=== PATIENT | female | born 1970 | race Caucasian/White ===

== ENCOUNTER → 2016-05-03 | Outpatient (REF) | payer OTHER ==
[~2016-05-03] MED LIST: /DULO30CA OR; /ESOM40CA OR; CALC600T10 OR; EXCETAB OR; METF750T OR; MULTIVIT PO; PRAV20TA2 OR; VITA500T OR; diltiazem PO; magnesium/zinc PO; medroxyprogesterone IM; vesicare PO
[2016-05-03 13:56] LABS: BASO % 0.4 % (0.0-1.0); EOS # 0.6 K/mm3 (0.0-0.50); EOS % 5.2 % (0.0-3.0); LARGE UNSTAINED CELL # 0.1 K/mm3 (0.0-0.4); LARGE UNSTAINED CELL % 0.9 % (0.0-4.0); LYMPH # 1.9 K/mm3 (1.5-4.5); LYMPH % 15.9 % (24.0-44.0); MEAN CORPUSCULAR HEMOGLOBIN 29.3 pg (27.0-33.0); MEAN CORPUSCULAR HGB CONC 32.8 g/dl (32.0-36.5); MEAN CORPUSCULAR VOLUME 89.2 fl (80.0-96.0); MONO # 0.5 K/mm3 (0.0-0.8); MONO % 4.5 % (0.0-5.0); NEUTROPHILS # 8.8 K/mm3 (1.8-7.7); NEUTROPHILS % 73.1 % (36.0-66.0); PLATELET COUNT, AUTOMATED 388 k/mm3 (150-450); RED CELL DISTRIBUTION WIDTH 12.6 % (11.5-14.5); WHITE BLOOD COUNT 12.1 K/mm3 (4.0-10.0)
[2016-05-03 14:29] LABS: ERYTHROCYTE SEDIMENTATION RATE 13 mm/hr (0-20)
[2016-05-05 14:13] LABS: Lyme Disease IgG/IgM Antibodie <0.91 ISR (0.00-0.90); Lyme Disease IgM Ab Quantitati <0.80 index (0.00-0.79)
== END ==
LOC: M LABDRAW1 13:09
PROVIDERS: ATTEND Orthopaedic Surgery
DX: G56.02 Carpal tunnel syndrome, left upper limb (principal)

== ENCOUNTER → 2016-09-12 | Outpatient (CLI) | payer OTHER ==
[2016-09-12 19:39] LABS: ANION GAP 11 MEQ/L (8-16); BLOOD UREA NITROGEN 16 MG/DL (7-18); CALCIUM LEVEL 9.1 MG/DL (8.5-10.1); CARBON DIOXIDE LEVEL 23 MEQ/L (21-32); CHLORIDE LEVEL 105 MEQ/L (98-107); CREATININE FOR GFR 0.98 MG/DL (0.55-1.02); GLOMERULAR FILTRATION RATE > 60.0 (>58); GLUCOSE, FASTING 158 MG/DL (70-105); SODIUM LEVEL 139 MEQ/L (136-145)
== END ==
LOC: M WUC 16:09
PROVIDERS: ATTEND Orthopaedic Surgery
DX: Z51.81 Encounter for therapeutic drug level monitoring (principal); Z79.899 Other long term (current) drug therapy

== ENCOUNTER → 2017-02-06 | Outpatient (CLI) | payer OTHER ==
--- NOTE | 2017-02-08 13:08 | REPMRS ---
Patient History The patient states she had a clinical breast exam in 2016. Patient is nulliparous. Family history of unknown cancer in maternal aunt at age 35 and unknown cancer in maternal uncle at age 60. Took hormonal contraceptives for 2 years. Taking unspecified hormones for 10 years. Digital Mammo Screening Bilat: February 06, 2017 - Exam #: [id number] Bilateral CC and MLO view(s) were taken. Technologist: Leora Lim, Technologist Prior study comparison: February 05, 2016, bilateral digital mammo screening bilat performed at [facility]. January 30, 2015, digital bilateral screening mammo, performed at [facility]. FINDINGS: There are scattered fibroglandular densities. There has been no change in the appearance of the mammogram from the prior studies. There is a mild amount of residual fibroglandular tissue which is fairly symmetric. There is no interval development of dominant mass, architectural distortion, or clustered microcalcification suggestive of malignancy. ASSESSMENT: BI-RADS/ACR category 1 mammogram. Negative. Recommendation Routine screening mammogram in 1 year (for women over age 40). This mammogram was interpreted with the aid of an FDA-approved computer-aided dectection system. Electronically Signed By: James Shaikh MD 02/08/17 [id number]
== END ==
LOC: M RAD 15:14
PROVIDERS: ATTEND Obstetrics & Gynecology
DX: Z12.31 Encounter for screening mammogram for malignant neoplasm of breast (principal); Z92.0 Personal history of contraception

== ENCOUNTER → 2018-06-23 | Outpatient (REF) | payer OTHER ==
[~2018-06-23] MED LIST changes: -/DULO30CA OR; -/ESOM40CA OR; +CYMB1CAP5 OR; +NEXI1CAP3 OR
== END ==
LOC: M LAB REF 10:21
PROVIDERS: ATTEND Physician Assistant
DX: R30.0 Dysuria (principal)

== ENCOUNTER → 2019-01-18 | Outpatient (REF) | payer OTHER | LOC: M LAB REF 12:33 | PROVIDERS: ATTEND Nurse Practitioner Family | DX: R30.0 Dysuria (principal) ==

== ENCOUNTER → 2019-06-10 | Outpatient (CLI) | payer OTHER | LOC: M LABSMTC 11:57 | PROVIDERS: ATTEND Family Medicine | DX: Z11.59 Encounter for screening for other viral diseases (principal); Z20.828 Contact with and (suspected) exposure to other viral communicable diseases ==

== ENCOUNTER 2019-09-02 06:40 | Day surgery (SDC) | payer OTHER ==
[~2019-09-02] VITALS: Ht 170.2 cm; Wt 124.7 kg
[~2019-09-02 06:40] MED LIST changes: +ALAW0.02 OU; +ATOR40TA75 PO; +BRIM0.2S13 OD; +CALC600T60 PO; +CART240C3 PO; +CHEL100T4 PO; +DULO1CAP6 PO; +ESOM40CA35 PO; +ESTR3TA PO; +EXCETAB22 PO; +LATA0.0015 OU; +MECL-58 PO; +MEDR150I12 IM; +METF750T36 PO; +MULTCAP PO; +RAMI1CAP22 PO; +VESI10TA2 PO; +[UNRECOGNIZED DRUG - CODE] PO
[2019-09-02] MEDS ORDERED: NS 1,000 ML IV ONE (07:00)
[2019-09-02] MEDS ORDERED: propofoL 200 MG/20 ML VIAL As Ordered ONE ×2 (07:14→07:35)
--- NOTE | 2019-09-02 08:00 | ROOR ---
Patient Name: Tiara Rios Procedure Date: 09/02/2019 7:34 AM Date of : 1970 Age: 49 [facility] Gender: Female Note Status: Finalized Procedure: Total Colonoscopy to Cecum + Biopsy Polypectomy Indications: Screening for colorectal malignant neoplasm Providers: Amadeo Whitmore MD Referring MD: VERONICA RAVI JR, MD Requesting Provider: Medicines: Monitored Anesthesia Care Complications: No immediate complications. Procedure: Pre-Anesthesia Assessment: - The heart rate, respiratory rate, oxygen saturations, blood pressure, adequacy of pulmonary ventilation, and response to care were monitored throughout the procedure. The Colonoscope was introduced through the anus and advanced to the cecum, identified by appendiceal orifice and ileocecal valve. The colonoscopy was performed without difficulty. The patient tolerated the procedure well. The quality of the bowel preparation was excellent. Findings: The perianal and digital rectal examinations were normal. Non-bleeding internal hemorrhoids were found during retroflexion. The hemorrhoids were small and Grade I (internal hemorrhoids that do not prolapse). Scattered small-mouthed diverticula were found in the recto-sigmoid colon, sigmoid colon and descending colon. A small polyp was found in the mid ascending colon. The polyp was sessile. The polyp was removed with a cold biopsy forceps. Resection and retrieval were complete. A small polyp was found at 60 cm proximal to the anus. The polyp was sessile. The polyp was removed with a cold biopsy forceps. Resection and retrieval were complete. The exam was otherwise without abnormality on direct and retroflexion views. Impression: - Non-bleeding internal hemorrhoids. - Diverticulosis in the recto-sigmoid colon, in the sigmoid colon and in the descending colon. - One small polyp in the mid ascending colon, removed with a cold biopsy forceps. Resected and retrieved. - One small polyp at 60 cm proximal to the anus, removed with a cold biopsy forceps. Resected and retrieved. - The examination was otherwise normal on direct and retroflexion views. - The exam was otherwise normal to the cecum. Recommendation: - Patient has a contact number available for emergencies. The signs and symptoms of potential delayed complications were discussed with the patient. Return to normal activities tomorrow. Written discharge instructions were provided to the patient. - High fiber diet. - Discharge patient to home. - Continue present medications. - Await pathology results. - Telephone GI clinic for pathology results in 1 week. - Repeat colonoscopy for surveillance based on pathology results. - Return to referring physician. - The findings and recommendations were discussed with the patient. Amadeo Whitmore MD Amadeo Whitmore MD 09/02/2019 8:00:37 AM Electronically signed by Amadeo Whitmore MD Number of Addenda: 0 Note Initiated On: 09/02/2019 7:34 AM Estimated Blood Loss: Estimated blood loss: none.
[2019-09-02 08:30] VITALS: BP 155/80
== END 2019-09-02 08:30 | disposition home or self-care (01) ==
LOC: M OPP 06:40
PROVIDERS: ATTEND Internal Medicine Gastroenterology
DX: Z12.11 Encounter for screening for malignant neoplasm of colon (principal); D12.2 Benign neoplasm of ascending colon; K64.0 First degree hemorrhoids; K57.30 Diverticulosis of large intestine without perforation or abscess without bleeding; E11.9 Type 2 diabetes mellitus without complications; Z79.899 Other long term (current) drug therapy; Z91.040 Latex allergy status; Z55.2 Failed school examinations; Z88.5 Allergy status to narcotic agent

== ENCOUNTER → 2020-12-04 | Outpatient (REF) | payer OTHER ==
[2020-12-05 13:11] LABS: ANTINUCLEAR ANTIBODIES DIRECT Negative (Negative)
== END ==
LOC: M LAB REF 11:31
PROVIDERS: ATTEND Psychiatry & Neurology Neurology
DX: R51.9 Headache, unspecified (principal)

== ENCOUNTER → 2021-02-18 | Outpatient (REF) | payer OTHER ==
[2021-02-18 15:01] LABS: FOLLICLE STIMULATING HORMONE 23.3 mIU/mL; LUTEINIZING HORMONE 5.5 mIU/mL
== END ==
LOC: M LAB REF 13:15
PROVIDERS: ATTEND Obstetrics & Gynecology
DX: N91.5 Oligomenorrhea, unspecified (principal)

== ENCOUNTER → 2022-03-02 | Outpatient (REF) | payer OTHER | LOC: M PLALAB 16:49 | PROVIDERS: ATTEND Nurse Practitioner Family | DX: Z12.4 Encounter for screening for malignant neoplasm of cervix (principal) | CPT/HCPCS: 87624; G0123 ==

== ENCOUNTER → 2023-07-19 | Outpatient (REF) | payer OTHER ==
[~2023-07-19] MED LIST changes: -RAMI1CAP22 PO; +RAMI2.5C42 PO
== END ==
LOC: M LAB REF 16:20
PROVIDERS: ATTEND Internal Medicine
DX: N39.0 Urinary tract infection, site not specified (principal)

== ENCOUNTER → 2023-07-19 | Outpatient (CLI) | payer OTHER | LOC: M WUC 10:57 | PROVIDERS: ATTEND Internal Medicine | DX: R10.9 Unspecified abdominal pain (principal) ==

== ENCOUNTER → 2023-12-25 | Outpatient (REF) | payer OTHER | LOC: M LAB REF 16:48 | PROVIDERS: ATTEND Nurse Practitioner Family | DX: J06.9 Acute upper respiratory infection, unspecified (principal); Z20.828 Contact with and (suspected) exposure to other viral communicable diseases ==

== ENCOUNTER → 2024-04-15 | Outpatient (REF) | payer OTHER ==
[2024-04-18 14:52] LABS: HPV APTIMA Not Detected (Not Detected)
== END ==
LOC: M SFHCWAGY 11:31
PROVIDERS: ATTEND Nurse Practitioner Family
DX: R87.610 Atypical squamous cells of undetermined significance on cytologic smear of cervix (ASC-US) (principal)
CPT/HCPCS: 87624; G0123

== ENCOUNTER → 2024-04-23 | Outpatient (CLI) | payer OTHER | LOC: M WHC 14:36 | PROVIDERS: ATTEND Nurse Practitioner Family | DX: Z30.42 Encounter for surveillance of injectable contraceptive (principal) ==

== ENCOUNTER → 2024-05-13 | Outpatient (REF) | payer OTHER | LOC: M LAB REF 16:45 | PROVIDERS: ATTEND Internal Medicine | DX: N39.0 Urinary tract infection, site not specified (principal) ==

== ENCOUNTER 2024-05-20 17:58 | Emergency (ER) | payer OTHER ==
[~2024-05-20] VITALS: Ht 170.2 cm; Wt 84.5 kg
[2024-05-20 21:40] VITALS: BP 154/69; TEMP 98.4; O2SAT 99
[2024-05-22] MEDS ORDERED: MULTTAB61 PO (07:35)
[2024-05-22] MEDS ORDERED: SEMA1PEN2 (07:35)
[2024-05-22] MEDS ORDERED: TOPI100T9 PO (07:35)
[2024-05-22] MEDS ORDERED: RAMI5CAP60 PO (07:35)
[2024-05-22] MEDS ORDERED: RIME75TA PO (08:08)
[2024-05-22] MEDS ORDERED: NAPR220C14 PO (08:08)
[2024-05-22] MEDS ORDERED: ESOM20CA25 PO (08:08)
[2024-05-22] MEDS ORDERED: POTA540T5 PO (08:08)
[2024-05-22] MEDS ORDERED: COLA100C5 PO (08:12)
== END 2024-05-20 21:42 | disposition home or self-care (01) ==
LOC: M ED 17:58 → EDBD 17:58 → M ED 21:42
DX: S00.81XA Abrasion of other part of head, initial encounter (principal); S32.030A Wedge compression fracture of third lumbar vertebra, initial encounter for closed fracture; S80.01XA Contusion of right knee, initial encounter; S50.02XA Contusion of left elbow, initial encounter; W10.8XXA Fall (on) (from) other stairs and steps, initial encounter; M48.02 Spinal stenosis, cervical region; M25.78 Osteophyte, vertebrae; R51.9 Headache, unspecified; I10 Essential (primary) hypertension; F41.9 Anxiety disorder, unspecified; F32.A Depression, unspecified; Z88.2 Allergy status to sulfonamides; Z88.5 Allergy status to narcotic agent; Z91.040 Latex allergy status; Z79.82 Long term (current) use of aspirin; Z79.02 Long term (current) use of antithrombotics/antiplatelets; Z79.899 Other long term (current) drug therapy; Y92.89 Other specified places as the place of occurrence of the external cause; Y93.89 Activity, other specified; Y99.9 Unspecified external cause status

== ENCOUNTER 2024-06-05 07:33 | Day surgery (SDC) | payer OTHER ==
[~2024-06-05] VITALS: Ht 170.2 cm; Wt 82.4 kg
[~2024-06-05 07:33] MED LIST changes: +COLA100C5 PO; +ESOM20CA25 PO; +MULTTAB61 PO; +NAPR220C14 PO; +POTA540T5 PO; +RAMI5CAP60 PO; +RIME75TA PO; +SEMA1PEN2; +TOPI100T9 PO
[2024-06-05 09:12] VITALS: BP 127/67; O2SAT 100
== END 2024-06-05 09:20 | disposition home or self-care (01) ==
LOC: M OPP 07:33
PROVIDERS: ATTEND Internal Medicine Gastroenterology
DX: K64.0 First degree hemorrhoids (principal); Z86.0100 Personal history of colon polyps, unspecified; K44.9 Diaphragmatic hernia without obstruction or gangrene; R12 Heartburn; Z88.2 Allergy status to sulfonamides; Z88.5 Allergy status to narcotic agent; Z91.040 Latex allergy status; Z79.85 Long-term (current) use of injectable non-insulin antidiabetic drugs; Z79.899 Other long term (current) drug therapy

== ENCOUNTER 2024-12-18 07:00 | Day surgery (SDC) | payer OTHER ==
[~2024-12-18] VITALS: Ht 170.2 cm; Wt 81.2 kg
[~2024-12-18 07:00] MED LIST changes: -MEDR150I12 IM; +MEDR150I15 IM; +TOPI-257 PO; -TOPI100T9 PO; +TRAV2.5D OU
[2024-12-18 08:27] VITALS: TEMP 99.5
[2024-12-18 08:49] VITALS: BP 156/75; O2SAT 100
== END 2024-12-18 08:59 | disposition home or self-care (01) ==
LOC: M OPP 07:00
PROVIDERS: ATTEND Internal Medicine Gastroenterology
DX: Z12.11 Encounter for screening for malignant neoplasm of colon (principal); K57.30 Diverticulosis of large intestine without perforation or abscess without bleeding; K64.0 First degree hemorrhoids; Z86.0100 Personal history of colon polyps, unspecified; Z88.2 Allergy status to sulfonamides; Z88.5 Allergy status to narcotic agent; Z91.040 Latex allergy status; Z79.85 Long-term (current) use of injectable non-insulin antidiabetic drugs; Z79.899 Other long term (current) drug therapy